=== PATIENT | male | born 1970 | race African-American/Black ===

== ENCOUNTER 2020-04-19 16:08 | Inpatient (IN) | payer OTHER ==
[~2020-04-19] VITALS: Ht 182.9 cm; Wt 70.3 kg
[2020-04-19] MEDS ORDERED: ZESTRIL2.5 MG (16:25)
--- NOTE | 2020-04-19 16:38 | NUR ---
SE RECIBE PTE ALERTA Y ORIENTADO X 3 ESFERAS AMBULANDO AL AREA DE TRIAGE. INDICA QUE DESDE STANISLAW PRESENTA MOVIMIENTOS INVOLUNTARIOS EN TODO EL CUERPO. REFIERE SENTIR DOLOR DE ADOLFO. REFIERE QUE EL BRAZO EMILEE NO LO SIENTE. SE REALIZA EKG Y SE PRESENTA A [place].RENTA.
--- NOTE | 2020-04-19 17:49 | NUR ---
PTE ES EVALUADO POR DRA. HARMON QUIEN ORDENA TRATAMIENTO. SE EDUCA A PTE SOBRE ORDENES MEDICAS Y REFIERE COMPRENDER. SE CANALIZA EN ANTEBRAZO L+ CON ANGIO #20 Y SE COLECTAN MUESTRAS DE LABORATORIO BAJO MEDIDAS ASEPTICAS. SE ADMINISTRAN MEDICAMENTOS AVRIL ORDEN MEDICA Y PTE AL MOMENTO NO PRESENTA REACCION ADVERSA. PTE CON CT HEAD REALIZADO.
[2020-04-25] MEDS ORDERED: VITAMIN B-1100 MG PO (13:59)
[2020-04-25] MEDS ORDERED: VITAMIN B-1000.4 MG PO (14:01)
[2020-04-25] MEDS ORDERED: CHLORDIAZEPOXID25 MG PO (14:02)
[2020-04-25] MEDS ORDERED: LISINOPRIL20 MG PO (14:04)
== END 2020-04-26 17:21 | disposition home or self-care (01) | DRG 897 ==
LOC: ER 16:08 → MEDJ 20:34 → MEDI 20:34
PROVIDERS: ADMIT Internal Medicine; ATTEND Internal Medicine
PROC: B020ZZZ Computerized Tomography (CT Scan) of Brain (ICD-10-PCS; principal; 2020-04-19)
PROC: BW40ZZZ Ultrasonography of Abdomen (ICD-10-PCS; 2020-04-19)
PROC: B030ZZZ Magnetic Resonance Imaging (MRI) of Brain (ICD-10-PCS; 2020-04-19)
DX: F10.232 Alcohol dependence with withdrawal with perceptual disturbance (principal); M62.82 Rhabdomyolysis; N17.8 Other acute kidney failure; T51.0X4A Toxic effect of ethanol, undetermined, initial encounter; G25.3 Myoclonus; E86.0 Dehydration; D64.89 Other specified anemias; R74.8 Abnormal levels of other serum enzymes; Z20.828 Contact with and (suspected) exposure to other viral communicable diseases
CPT/HCPCS: 70551

== ENCOUNTER → 2020-05-09 | Emergency (ER) | payer OTHER ==
[~2020-05-09] VITALS: Ht 182.9 cm; Wt 68.0 kg
[~2020-05-09] MED LIST: CHLORDIAZEPOXID25 MG PO; DECADRON6 MG PO; DOLOGESIC 500-1 EACH PO; LISINOPRIL20 MG PO; VISTARIL50 MG PO; VITAMIN B-1000.4 MG PO; VITAMIN B-1100 MG PO; ZESTRIL2.5 MG; ZITHROMAX500 MG PO
== END | disposition home or self-care (01) ==
LOC: ER 19:32
DX: U07.1 COVID-19 (principal); F41.0 Panic disorder [episodic paroxysmal anxiety]; F10.939 Alcohol use, unspecified with withdrawal, unspecified; Y90.9 Presence of alcohol in blood, level not specified

== ENCOUNTER 2021-07-05 11:01 | Emergency (ER) | payer OTHER ==
[~2021-07-05] VITALS: Ht 182.9 cm; Wt 68.0 kg
[2021-07-05] MEDS ORDERED: LISINOPRIL40 MG PO (11:12)
== END 2021-07-05 12:00 | disposition home or self-care (01) ==
LOC: ER 11:01 → EDBD 11:03 → ER 11:03
DX: F41.8 Other specified anxiety disorders (principal); F17.210 Nicotine dependence, cigarettes, uncomplicated; F10.239 Alcohol dependence with withdrawal, unspecified; I10 Essential (primary) hypertension

== ENCOUNTER 2021-07-11 14:51 | Emergency (ER) | payer OTHER ==
[~2021-07-11] VITALS: Ht 182.9 cm; Wt 68.0 kg
[~2021-07-11 14:51] MED LIST changes: +LISINOPRIL40 MG PO
[2021-07-11] MEDS ORDERED: INTESTINEX680 M1 PO (17:56)
[2021-07-11] MEDS ORDERED: ONDANSETRON HCL4 MG PO (17:56)
[2021-07-11] MEDS ORDERED: PEPCID AC20 MG PO (17:56)
[2021-07-11] MEDS ORDERED: CARAFATE1 GM PO (19:20)
[2021-07-11] MEDS ORDERED: VISTARIL50 MG PO (19:20)
== END 2021-07-11 19:35 | disposition home or self-care (01) ==
LOC: ER 14:51
DX: K29.60 Other gastritis without bleeding (principal); A05.9 Bacterial foodborne intoxication, unspecified; E86.0 Dehydration

== ENCOUNTER 2023-09-04 13:28 | Emergency (ER) | payer OTHER ==
[~2023-09-04] VITALS: Ht 185.4 cm; Wt 76.2 kg
[~2023-09-04 13:28] MED LIST changes: +CARAFATE1 GM PO; +INTESTINEX680 M1 PO; +ONDANSETRON HCL4 MG PO; +PEPCID AC20 MG PO
[2023-09-04 17:18] LABS: HEMATOCRIT 43.2 % (39.0-48.0); HEMOGLOBIN 14.7 g/dL (13-16.00); MEAN CELL VOLUME 79.5 fL (80.0-100.00); MEAN CORPUSCULAR HEMOGLOBIN 27.2 pg (27.00-32.0); MEAN CORPUSCULAR HGB CONC 34.2 g/dl (32.0-36.0); PLATELET COUNT 306 K/uL (150-450); RED BLOOD COUNT 5.43 M/uL (4.00-6.00); RED CELL DISTRIBUTION WIDTH 12.9 % (11.5-14.5)
[2023-09-04 17:23] LABS: PH,URINE 5.5 (5.0-8.0); URINE APPEARANCE Clear; URINE BILIRRUBIN Negative (NEGATIVE); URINE BLOOD Trace; URINE COLOR Yellow; URINE GLUCOSE Negative (NEGATIVE); URINE LEUKOCYTE Trace; URINE NITRATE Negative; URINE PROTEIN Negative (NEGATIVE); URINE UROBILINOGEN 0.2 E.U./dl
[2023-09-04 17:26] LABS: URINE RBC 3.8 uL (0.0-20.8); URINE WBC 2.6 uL (0.0-23.2)
[2023-09-04 17:34] LABS: URINE BACTERIA 0 uL (0.0-1933); URINE EPITHELIAL CELLS 0.3 uL (0.0-38.8)
[2023-09-04 17:38] LABS: ALBUMIN 4.6 gm/dL (3.4-5.0); BILIRUBIN TOTAL 0.98 mg/dL (0.3-1.2); CALCIUM 9.9 mg/dL (8.5-10.1); CREATININE SERUM 0.99 mg/dL (0.70-1.30); GFR 78.48; GLOBULINA 4.1 G/DL (2.4-3.5); POTASSIUM 3.99 mEq/L (3.5-5.1); TOTAL PROTEIN 8.7 gm/dL (6.4-8.2)
== END 2023-09-05 00:18 | disposition home or self-care (01) ==
LOC: ER 13:28
PROVIDERS: Emergency Medicine
DX: R10.13 Epigastric pain (principal); I10 Essential (primary) hypertension; K29.70 Gastritis, unspecified, without bleeding

== ENCOUNTER 2024-04-26 12:29 | Emergency (ER) | payer OTHER ==
[~2024-04-26] VITALS: Ht 172.7 cm; Wt 59.0 kg
[2024-04-26] MEDS ORDERED: COZAAR25 MG (13:14)
[2024-04-26 13:50] LABS: HEMATOCRIT 36.8 % (39.0-48.0); HEMOGLOBIN 12.9 g/dL (13-16.00); MEAN CORPUSCULAR HEMOGLOBIN 27.7 pg (27.00-32.0); MEAN CORPUSCULAR HGB CONC 35.1 g/dl (32.0-36.0); PLATELET COUNT 258 K/uL (150-450); RED BLOOD COUNT 4.66 M/uL (4.00-6.00); RED CELL DISTRIBUTION WIDTH 12.5 % (11.5-14.5)
[2024-04-26 14:04] LABS: CALCIUM 9.1 mg/dL (8.5-10.1); CREATININE SERUM 1.02 mg/dL (0.70-1.30); GFR 75.82; POTASSIUM 3.84 mEq/L (3.5-5.1)
== END 2024-04-26 14:20 | disposition home or self-care (01) ==
LOC: ER 12:31
PROVIDERS: General Practice
DX: R07.9 Chest pain, unspecified (principal)